=== PATIENT | male | born 1980 | race Caucasian/White ===

== ENCOUNTER 2019-03-01 09:38 | Outpatient (CLI) | payer BC ==
--- NOTE | 2019-03-01 11:18 | ULT ---
ULTRASOUND ABDOMEN: HISTORY: Abdominal pain. FINDINGS: The liver, spleen, gallbladder, right kidney, and visualized portions of the pancreas, aorta, and IVC appear normal. There is a 1.4 cm shadowing calculus in the left kidney without hydronephrosis. The common duct measures 3 mm in diameter. No free fluid is seen. IMPRESSION: Nonobstructing left renal calculus. POS: [facility]
== END 2019-03-01 09:39 | disposition home or self-care (01) ==
LOC: ULT 09:38
PROVIDERS: ATTEND Physician Assistant
DX: R10.9 Unspecified abdominal pain (principal); N20.0 Calculus of kidney
CPT/HCPCS: 93975